=== PATIENT | female | born 1970 | race Two or more races ===

== ENCOUNTER 2024-11-05 19:54 | Emergency (ER) | payer MEDICAID, SELFPAY ==
[2024-11-05 19:56] VITALS: BMI 32.8
--- NOTE | 2024-11-05 19:59 | EKG_ITS ---
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
[2024-11-05 20:26] VITALS: BP 159/76; PULSE 76; RESP 18; TEMP 37; O2SAT 98
--- NOTE | 2024-11-05 20:40 | XR_ITS ---
Examination: PA chest single view Technique: Upright PA chest single view Exam date and time: November 05, 20242 hrs. Indications: Chest pain coughing shortness of breath today. Findings: Mild accentuation basilar bronchovascular markings No lobar pneumonia Normal heart size The osseous structures are intact Impression: Mild basilar bronchitis pattern
--- NOTE | 2024-11-05 20:41 | EDRME_ITS ---
Rapid Medical Screening Exam [facility] Arrival date/time: 11/05/24 19:54 54F with history of HTN and DM presents to ED with several days of cough, CP, and SOB. Chief Complaint: Chest Pain Vital signs: Vital Signs Temperature 98.6 F 11/05/24 20:26 Pulse Rate 76 11/05/24 20:26 Respiratory Rate 18 11/05/24 20:26 Blood Pressure 159/76 H 11/05/24 20:26 Pulse Oximetry (%) 98 11/05/24 20:26 Oxygen Delivery Method Room Air 11/05/24 20:26
[2024-11-05 21:14] LABS: Basophils # (Auto) 0.1 Thou/mm3 (0.0-0.2); Basophils % (Auto) 1 % (0-2.5); Eosinophils # (Auto) 0.5 Thou/mm3 (0.0-0.5); Eosinophils % (Auto) 5 % (0-10); Hematocrit 41.2 % (36.0-46.0); Hemoglobin 14.4 g/dL (12.0-16.0); Immature Granulocytes % (Auto) 0 % (0-0); Immature Granulocytes Auto 0.02 Thou/mm3 (0.00-0.00); Lymphocytes # (Auto) 2.6 Thou/mm3 (1.0-4.8); Lymphocytes % (Auto) 24 % (10-50); Mean Corpuscular Hemoglobin 29.6 pg (25.0-35.0); Mean Corpuscular Volume 85 fL (80-100); Monocytes # (Auto) 0.7 Thou/mm3 (0.0-0.8); Monocytes % (Auto) 7 % (0-12); Neutrophils # (Auto) 6.9 Thou/mm3 (1.8-7.7); Neutrophils % (Auto) 64 % (37-80); Nucleated Red Blood Cell % 0 /100 WBC (0); Platelet Count 305 Thou/mm3 (140-440); RDW Standard Deviation 40.2 fL (36.4-46.3); Red Blood Count 4.87 Miln/mm3 (4.00-5.20); White Blood Count 10.9 Thou/mm3 (3.6-11.0)
[2024-11-05 21:25] LABS: Alanine Aminotransferase 48 U/L (10-49); Albumin, Serum 4.3 gm/dL (3.5-5.0); Albumin/Globulin Ratio 1.3 (1.2-2.2); Alkaline Phosphatase 120 U/L (46-116); Anion Gap 11 (7-16); Aspartate Amino Transferase 35 U/L (0-34); BUN/Creatinine Ratio 16 Ratio (12-20); Bilirubin,Total 0.7 mg/dL (0.3-1.2); Blood Urea Nitrogen 11 mg/dL (9-23); Calcium 9.9 mg/dL (8.3-10.6); Calcium (Corrected) 9.9 mg/dL (8.5-10.1); Carbon Dioxide 24.2 mMol/L (20.0-31.0); Chloride 104 mMol/L (98-107); Creatinine (Component) 0.7 mg/dL (0.6-1.3); Estimated Creatinine Clearance 95.4 mL/min (>60); Globulin 3.3 gm/dL (2.3-3.5); Glucose 161 mg/dL (74-106); Osmolality,Calculated 279 (275-295); Potassium 2.9 mMol/L (3.4-5.1); Sodium 139 mMol/L (136-145); Total Protein 7.6 gm/dL (5.7-8.2); Troponin I < 0.002 ng/mL (0.0-0.045); eGFR > 60 See Note
--- NOTE | 2024-11-05 22:13 | EDNOTE_ITS ---
ED Chest Pain RME/HPI General Chief Complaint: Chest Pain Stated Complaint: CHEST PAIN,PALPITATIONS, SOB Time Seen by Provider: 11/05/24 22:12 Arrival date/time: 11/05/24 19:54 RME / HPI RME / HPI narrative: 11/05/24 19:54 54F with history of HTN and DM presents to ED with several days of cough, CP, and SOB. -------- Dr. Christian?s Main ED Evaluation: 54yo female with a history of HTN, DM presents to the ED for a chief complaint of generalized weakness x 3 days. Patient states she's had generalized weakness and palpitations for the last 3 days. She states she was seen by her PCP today and was sent over for evaluation. Patient denies any fever, chills, N/V or any other associated symptoms. No known allergies. Related Data Home Medications ?Medication ?Instructions ?Recorded ?Confirmed lisinopril 20 mg tablet 20 mg PO QDAY 03/03/2003/03 Previous Rx's ?Medication ?Instructions ?Recorded potassium chloride 10 mEq 10 meq PO QDAY Hypokalemia 7 days 11/05/24 capsule,extended release #7 caps Allergies Allergy/AdvReac Type Severity Reaction Status Date / Time No Known Allergies Allergy Verified 11/05/24 19:56 Review of Systems Review of Systems Systems Reviewed: All systems reviewed, normal except as documented Past Medical History Past Medical History NEUROLOGIC: Negative Neurological Disorders or Seizures CARDIAC: Positive Cardiac Disorders (HTN) and Hypertension; Negative Congestive Heart Failure RESPIRATORY: Negative Chronic Obstructive Pulmonary Disease (COPD) or Asthma GASTROINTESTINAL: Negative Gastrointestinal Disorders GENITOURINARY: Negative Genitourinary Disorders or Renal Disease MUSCULOSKELETAL: Positive Musculoskeletal Disorders and Arthritis ENDOCRINE: Positive Diabetes Mellitus Type 2; Negative Endocrine Disorders or Diabetes Mellitus Type 1 HEMATOLOGIC: Negative Blood Disorders or Sickle Cell Disease PSYCHO/SOCIAL: Positive Depression OTHER HISTORY: Negative Autoimmune Disease, Blood Transfusions (NO BLOOD PRODUCTS-PT JEHOVAH WITNESS), Blood Transfusion Reaction, Anesthesia Reactions, Organ Transplant or Cancer Surgical History SURGICAL: Positive Joint Replacement (RIGHT KNEE) and Tubal Ligation; Negative Organ Transplant Social History SMOKING STATUS: Never smoker SUBSTANCE USE: does not use ED Exam Narrative Physical exam: GENERAL APPEARANCE: alert and oriented x 4, well-developed, well-nourished, no acute distress VITALS: All vitals were reviewed and the pulse ox is 98% on room air, which is normal according to my interpretation. HEENT: Normocephalic, atraumatic; pupils equal, round, reactive to light; EOMI; pterygium to the left eye; mucous membranes pink, moist; oropharynx clear NECK: Supple LUNGS: CTABL; no wheezes, no rales, no rhonchi HEART: Regular rate, regular rhythm; normal S1, S2; no murmurs ABDOMEN: non distended; normal BS; soft, no tenderness, no guarding, no rebound; no masses, no organomegaly, no hernia BACK: no CVA tenderness EXTREMITIES: atraumatic; no edema NEUROLOGIC: awake; alert and oriented x4; cranial nerves II-XII grossly intact; no focal sensory or motor deficits PSYCHIATRIC: appropriate mood and affect SKIN: warm, dry, normal color; no rashes Course Course Course Narrative: CXR is ordered for determining the etiology of palpitations. Quality Measures none Orders Category Date Time Status Bedside COVID-19 Antigen Test NOW Care 11/05/24 20:40 Completed Bedside Influenza A&B Antigen Test NOW Care 11/05/24 20:41 Completed EKG (ED ONLY) *Do not use* NOW Care 11/05/24 19:59 Completed EKG (ED Only) Stat Exams 11/05/24 19:59 Draft XR chest 1V portable Stat Exams 11/05/24 20:40 Completed CBC Stat Lab 11/05/24 20:59 Completed Comprehensive Metabolic Panel Stat Lab 11/05/24 20:59 Completed Troponin I Stat Lab 11/05/24 20:59 Completed Potassium Chloride [K-Dur] Med 11/05/24 22:12 Discontinued 40 meq PO X1 ONE Vital Signs Vital signs: Vital Signs Temperature 98.6 F 11/05/24 20:26 Pulse Rate 76 11/05/24 20:26 Respiratory Rate 18 11/05/24 20:26 Blood Pressure 159/76 H 11/05/24 20:26 Pulse Oximetry (%) 98 11/05/24 20:26 Oxygen Delivery Method Room Air 11/05/24 20:26 Chest Pain MDM Narrative MDM Narrative:: Scribe Attestation: 11/05/24 - Lakisha Sanchez am scribing for and in the presence of Dr. Christian. Patient data External records reviewed:: [facility] previous records (Per chart review, patient was seen here on 12/27/23 for abdominal pain.) Clinical information provided by:: patient Social determinants that could affect healthcare access:: none Patient has the following chronic illnesses:: HTN, DM How is presenting disease/condition affected by chronic disease/condition?: uneffected by Evaluation data The following diagnostics were reviewed and interpreted by me:: lab results, radiology exam(s) and EKG tracing(s) Lab and/or radiology exams considered but not ordered:: none Interpretation Summary: CBC is normal, Potassium is low at 2.9, Glucose is 161, Troponin is normal, Bedside COVID and Influenza are negative, according to my interpretation. EKG done at 2024, NSR, rate of 73, left axis deviation, no ectopy, Q waves in V1-V3, no STEMI, according to my interpretation. [facility] Report Signed Patient: ZACKARY HOWARD. Record#: [id number] Birthdate: 1970 Age/Sex: 54 / F Location: [facility] Attending Dr: Ordering Physician: Phillip Leblanc PA-C Date of Service: 11/05/24 Procedure(s): XR chest 1V portable Accession Number(s): [id number] cc: Catrachito Joshi MD; Phillip Leblanc PA-C~ Examination: PA chest single view Technique: Upright PA chest single view Exam date and time: November 05, 2024 2042 hrs. Indications: Chest pain coughing shortness of breath today. Findings: Mild accentuation basilar bronchovascular markings No lobar pneumonia Normal heart size The osseous structures are intact Impression: Mild basilar bronchitis pattern Dictated By: Catrachito Joshi MD Signed By: <Electronically signed by Catrachito Joshi MD in OV> 11/05/242127 Medications / Prescriptions Medications or Prescriptions considered but not ordered:: none Medication administrations:: Medication Administration History Discontinued Medications Potassium Chloride (Potassium Chloride 20 Meq Tabcr) 40 meq PO X1 ONE Stop: 11/05/24 22:13 Last Admin: 11/05/24 22:46 Dose: 40 meq Documented By: CVL see above Consultations Consultation(s) initiated? (list below): No Diagnosis Chest Pain Differential Diagnosis: other (hypokalemia, hypomagnesemia, viral illness, chronic fatigue syndrome) Most likely diagnosis given after review of the tests above:: see below Admission Indicated Admission indicated?: not indicated Explain why admission is indicated or not indicated:: No criteria for admission. Admission Request Was there a request for admission?: No Disposition Plan Disposition Plan: Discharge Discharge Attestation Discharge Attestation: The patient and all family members were given an opportunity to ask questions and understood the discharge instructions. Discharge instructions specifically effects, indications for sooner follow up or return to the emergency department, and the expected course of current diagnosis. Patient condition: Stable Discharge Plan Plan Patient Disposition: HOME (Self Care) Disposition Comment: Stable for discharge home Patient condition on transfer: Stable Prescriptions/Referrals Prescriptions/Med Rec: New potassium chloride 10 mEq capsule, extended release 10 meq PO QDAY 7 Days Qty: 7 0RF No Action lisinopril 20 mg Tablet 20 mg PO QDAY Referrals: Rafael De La Garza MD [Primary Care Provider] - In 1 week Problem List Clinical Impression: Acute hypokalemia, Pterygium of left eye, Heart palpitations Patient/Caregiver Discharge Instructions Discharge Activity: activity as tolerated Education Materials: Understanding Pterygium, Discharge Instructions for ..., Treatment for a Pterygium, ED Hypokalemia, ED Palpitations, ED Pterygium Additional Instructions: Please return to the emergency department if you have any worsening or any further medical problems. Otherwise you should follow-up with your primary care doctor within the next several days. You have something called an pterygium on your left eye. Please follow-up with your primary doctor and ask to be referred to an right of way appraiser. An right of way appraiser is a doctor who is a specialist in the eyes. You should not see an emergency spill response technician. Make sure is an right of way appraiser. The closest hospital that has an right of way appraiser on-call for their emergency department is [facility] in [place]. If you have blurry vision in your left eye or any other problems you can go to their emergency department and request to be seen by or referred to an right of way appraiser. [facility] Emergency [facility] [place] [address] Print Language: Comoran Stand Alone Forms: Betty Award Info., Patient Portal Info Letter
[2024-11-05 22:36] VITALS: BP 137/86; PULSE 87; RESP 18; TEMP 36.6; O2SAT 99
[2024-11-05] MEDS: POTASSIUM CHLORIDE 20 mEq TABCR 40 MEQ PO (22:46)
[2024-11-05 23:00] VITALS: RESP 18
== END 2024-11-05 23:14 | disposition home or self-care (01) ==
PROVIDERS: Physician Assistant; Emergency Provider Emergency Medicine; PCP Family Medicine
DX: E87.6 Hypokalemia (principal); H11.002 Unspecified pterygium of left eye; R00.2 Palpitations; R94.31 Abnormal electrocardiogram [ECG] [EKG]; R05.9 Cough, unspecified; R07.9 Chest pain, unspecified; R06.02 Shortness of breath; I10 Essential (primary) hypertension
CPT/HCPCS: 36415; 71045; 80053; 84484; 85025; 87400; 87811; 93005; 99283; A9270

== ENCOUNTER 2024-12-31 18:55 | Emergency (ER) | payer MEDICAID, SELFPAY ==
[2024-12-31 18:57] VITALS: BMI 32.8
--- NOTE | 2024-12-31 19:03 | EKG_ITS ---
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
--- NOTE | 2024-12-31 19:48 | EDNOTE_ITS ---
Neuro Symptoms Deficit-RME/HPI General Chief Complaint: Neuro Symptoms/Deficit Stated Complaint: WEAKNESS, FACIAL AND BLE WEAKNESS X1 WEEK Time Seen by Provider: 12/31/24 19:37 Arrival date/time: 12/31/24 18:55 RME / HPI RME / HPI Narrative: This section includes all my notes and documentations, including HPI, PE, and ED course. Ryan Desir MD HPI: 54 y/o female with Hx of GERD, Type II DM, Primary biliary chirosis of liver here with about a week history of on and off numbness of her lips and tongue. In the past, she had similar symptoms with low potassium level. She also reports slight dizziness and headache and chest tightness on and off. No other complaints. ROS: All negative except as documented in HPI. Physical Exam: General: Alert and oriented. Appears anxious. Eyes: Conjunctivae and lids clear. EOMI. PERRL. ENT: No nasal congestion. Pharynx normal. Tympanic membrane normal bilaterally. Neck: Supple. No carotid bruit. No JVD. Heart: RRR. Lungs: No respiratory distress. Good air movement. No rhonchi, wheezing, rales. Chest: No tenderness. Abdomen: Soft and nontender. Legs: No clubbing, cyanosis, edema. Skin: Warm and dry. Neuro: Alert and oriented X 3. Cranial Nerves II-XII grossly intact. No peripheral motor deficits. I reviewed all diagnostic test results. My interpretation of the EKG is sinus rhythm with no acute ST?T changes. My interpretation of the chest x-ray is NAD. My review of the head CT report is NAD. Blood tests and urine tests unremarkable, except K 3.2. At this point, diagnoses include Hypokalemia and anxiety. Treatment here included Xanax and Potassium Chloride. Significant improvement noted. Recommended outpatient treatment. Based on my best medical judgment, made decision no further evaluation or treatment indicated at this time. Patient understands and agrees to the discharge instructions customized and printed, see below. Discharge instructions from Dr. Desir: 1. After extensive evaluation, there is no life-threatening condition.? Such as stroke or brain tumor or heart attack or pneumothorax (collapsed lung). 2. Your potassium level was very low. Increase food rich in potassium. At minimum, eat a banana daily. 3. Take Xanax as needed for anxiety.? Some of your symptoms may be due to underlying anxiety, stress, nerves. Whether this helps or not will be valuable information to your private doctors. 4. See a private doctor on 01/01/2025. To make sure there is no serious underlying heart condition, ask to help you get more tests for your heart that cannot be done here in the ER.? Such as Holter Monitor (cardiac monitoring at home from a day to even a month), heart stress test (on treadmill or with medication), echocardiogram (imaging of your heart structures), heart catherization (checking for blockages in your heart arteries), and a referral to see a Charging Manipulator. And ask for help with MRI imaging of your brain and referral to see neurologist. 5. Seek immediate medical care with worsening or with any concerns.?? Ryan Desir MD Related Data Home Medications ?Medication ?Instructions ?Recorded ?Confirmed lisinopril 20 mg tablet 20 mg PO QDAY 03/03/2003/03 Previous Rx's ?Medication ?Instructions ?Recorded alprazolam 0.25 mg tablet (Xanax) 0.25 mg PO BID PRN a nxiety #10 tabs 12/31/24 Allergies Allergy/AdvReac Type Severity Reaction Status Date / Time No Known Allergies Allergy Verified 12/31/24 18:59 Review of Systems Review of Systems Systems Reviewed: All systems reviewed, normal except as documented Narrative Review of Systems: Refer to HPI above Past Medical History Past Medical History CARDIAC: Positive Cardiac Disorders (HTN) and Hypertension MUSCULOSKELETAL: Positive Musculoskeletal Disorders and Arthritis PSYCHO/SOCIAL: Positive Depression Surgical History SURGICAL: Positive Joint Replacement (RIGHT KNEE) and Tubal Ligation Social History SMOKING STATUS: Never smoker SUBSTANCE USE: does not use ED Exam Narrative Physical exam: Refer to HPI above. Course Quality Measures none Orders Category Date Time Status EKG (ED ONLY) *Do not use* NOW Care 12/31/24 19:03 Completed Glucose [Bedside Blood Glucose] NOW Care 12/31/24 19:[address] head/brain wo con Stat Exams 12/31/24 19:49 Completed EKG (ED Only) Stat Exams 12/31/24 19:03 Draft XR chest 1V portable Stat Exams 12/31/24 19:49 Completed CBC Stat Lab 12/31/24 20:20 Completed CMP [Comprehensive Metabolic Panel] Stat Lab 12/31/24 20:20 Completed CRP [C-Reactive Protein] Stat Lab 12/31/24 20:20 Completed ESR [Sed Rate (ESR)] Stat Lab 12/31/24 20:20 Completed Free T4 (Free Thyroxine) Stat Lab 12/31/24 20:20 Completed Magnesium Stat Lab 12/31/24 20:20 Completed Procalcitonin Stat Lab 12/31/24 20:20 Completed TSH [Thyroid Stimulating Hormone] Stat Lab 12/31/24 20:20 Completed Troponin I Stat Lab 12/31/24 20:20 Completed UA, C/S IF [Urinalysis, C/S if Indicated] Stat Lab 12/31/24 20:51 Completed ALPRazoLAM [Xanax] Med 12/31/24 19:49 Discontinued 0.25 mg PO X1 ONE KCL 10% Liq UDC 15 ML Med 12/31/24 21:32 Discontinued 40 meq PO X1 ONE Vital Signs Vital signs: Vital Signs Temperature 98.1 F 12/31/24 19:57 Pulse Rate 67 12/31/24 19:57 Respiratory Rate 18 12/31/24 19:57 Blood Pressure 162/94 H 12/31/24 19:57 Pulse Oximetry (%) 99 12/31/24 19:57 Oxygen Delivery Method Room Air 12/31/24 19:57 Neuro Symptoms / Deficit MDM Narrative MDM Narrative:: Scribe Attestation: Suri Sanchez, am scribing for and in the presence of Dr. Desir. Provider Notation: Although this document has been carefully reviewed, there may still be some phonetic and other typographical errors. These errors are purely grammatical due to imperfections in the software program and should not be construed in any way to compromise the substance of the patient's medical care during this visit. Patient data External records reviewed:: [facility] previous records (Reviewed prior ED records from 11/05/24. Patient seen for Acute hypokalemia.) and PCP records Clinical information provided by:: patient Social determinants that could affect healthcare access:: none Patient has the following chronic illnesses:: Hypertension, Arthritis, Depression How is presenting disease/condition affected by chronic disease/condition?: exacerbated by Evaluation data The following diagnostics were reviewed and interpreted by me:: lab results, radiology exam(s) and EKG tracing(s) (My interpretation of the EKG is: Sinus rhythm (66 bpm) with nonspecific ST-T changes. Ryan Desir MD) Lab and/or radiology exams considered but not ordered:: None Interpretation Summary: Hypokalemia and anxiety Medications / Prescriptions Medications or Prescriptions considered but not ordered:: None Medication administrations:: Medication Administration History Discontinued Medications Alprazolam (Alprazolam 0.25 Mg Tablet) 0.25 mg PO X1 ONE Stop: 12/31/24 19:50 Last Admin: 12/31/24 20:16 Dose: 0.25 mg Documented By: ASHLEY Potassium Chloride (Potassium Chloride 10% 20 Meq/15 Ml Udc) 40 meq PO X1 ONE Stop: 12/31/24 21:33 Last Admin: 12/31/24 21:59 Dose: 40 meq Documented By: JOSE Alprazolam, Potassium Chloride Consultations Consultation(s) initiated? (list below): No Diagnosis Neuro Differential Diagnosis: subarachnoid hemorrhage, peripheral neuropathy, cerebrovascular accident, transient cerebral ischemia and other (Hyperthyroidism, electrolyte abnormalities, anxiety) Most likely diagnosis given after review of the tests above:: Hypokalemia and anxiety Admission Indicated Admission indicated?: not indicated Explain why admission is indicated or not indicated:: With significant improvement, there was no indication for admission. Admission Request Was there a request for admission?: No Disposition Plan Disposition Plan: Discharge Discharge Attestation Discharge Attestation: The patient and all family members were given an opportunity to ask questions and understood the discharge instructions. Discharge instructions specifically effects, indications for sooner follow up or return to the emergency department, and the expected course of current diagnosis. Patient condition: Stable Discharge Plan Plan Patient Disposition: HOME (Self Care) Prescriptions/Referrals Prescriptions/Med Rec: New alprazolam [Xanax] 0.25 mg tablet 0.25 mg PO BID PRN (Reason: anxiety) Qty: 10 0RF No Action lisinopril 20 mg Tablet 20 mg PO QDAY Referrals: No Primary/Family,Physician [Primary Care Provider] - In 1 week Problem List Clinical Impression: Hypokalemia Patient/Caregiver Discharge Instructions Discharge Activity: activity as tolerated Education Materials: ED Anxiety Reaction, ED Hypokalemia Additional Instructions: Discharge instructions from Dr. Desir: 1. After extensive evaluation, there is no life-threatening condition.? Such as stroke or brain tumor or heart attack or pneumothorax (collapsed lung). 2. Your potassium level was very low. Increase food rich in potassium. At minimum, eat a banana daily. 3. Take Xanax as needed for anxiety.? Some of your symptoms may be due to underlying anxiety, stress, nerves. Whether this helps or not will be valuable information to your private doctors. 4. See a private doctor on 01/01/2025. To make sure there is no serious underlying heart condition, ask to help you get more tests for your heart that cannot be done here in the ER.? Such as Holter Monitor (cardiac monitoring at home from a day to even a month), heart stress test (on treadmill or with medication), echocardiogram (imaging of your heart structures), heart catherization (checking for blockages in your heart arteries ), and a referral to see a Charging Manipulator. And ask for help with MRI imaging of your brain and referral to see neurologist. 5. Seek immediate medical care with worsening or with any concerns.?? Instrucciones de vania del Dr. Desir: 1. Tras nadira evaluaci?n exhaustiva, no se observa ninguna afecci?n potencialmente mortal, nader un derrame cerebral, un tumor cerebral, un ataque card?aco o un neumot?rax (colapso pulmonar). 2. Leblanc nivel de potasio era muy bajo. Aumente el consumo de alimentos ricos en potasio. Celina m?shawanda, coma un pl?norma al d?a. 3. [place] Xanax seg?n sea necesario para la ansiedad. Algunos de jn s?ntomas pueden deberse a ansiedad, estr?s o nerviosismo subyacentes. Si esto ayuda o no, ser? nadira informaci?n valiosa para jn m?dicos privados. 4. Consulte con un m?dico privado el 01/01/2025. Para asegurarse de que no haya nadira afecci?n card?shaneka subyacente grave, solicite ayuda para realizar m?s pruebas card?acas que no se pueden realizar aqu? en urgencias. Nader un monitor Holter (monitoreo card?aco en casa desde un d?a hasta un mes), nadira prueba de esfuerzo card?aco (en cinta o con medicaci?n), un ecocardiograma (im?genes de las estructuras card?acas), un cateterismo card?aco (para detectar obstrucciones en las arterias card?acas) y nadira derivaci?n a un cardi?logo. [place] ayuda con nadira resonancia magn?carlitos cerebral y nadira derivaci?n a un neur?logo. 5. Busque atenci?n m?dica inmediata si presenta empeoramiento o si tiene alguna inquietud. Print Language: Chilean Stand Alone Forms: Betty Award Info., Patient Portal Info Letter
--- NOTE | 2024-12-31 19:49 | XR_ITS ---
Examination: CT brain head without contrast. 2-D sagittal coronal reconstructions Date and time of exam:December 31, 2024 2033 hrs. Indications: Head pain numbness and weakness one week CTDI: vol (mGy):49.5 DLP: (mGycm):985 Technique: Multiple CT axial sections of the brain have been obtained, 5 mm slice thickness. Contrast has not been administered. 2-D sagittal, coronal reconstructions have been obtained Low dose protocols were performed. One or more of the following dose reduction techniques were used; automated exposure control, adjustment of the mA and/or KV according to patient size, use of iterative reconstruction technique. Findings: No significant ventricular enlargement. Intra-axial or extra-axial hemorrhage density is not seen. No mass effect or midline shift Basal cisterns are not remarkable. Fourth ventricle is midline. Cranial vault intact. Impression: Negative for acute hemorrhage, mass effect or midline shift Advise clinical correlation and follow-up accordingly
--- NOTE | 2024-12-31 19:49 | XR_ITS ---
Examination: PA chest single view Technique: Upright PA chest single view Exam date and time: December 31, 20242006 hrs. Indications: Shortness of breath weakness today. Findings: Accentuation basilar bronchovascular markings Normal heart size No pulmonary edema or pneumonia Impression: Basilar bronchitis pattern
[2024-12-31 19:57] VITALS: BP 162/94; PULSE 67; RESP 18; TEMP 36.7; O2SAT 99
[2024-12-31] MEDS: ALPRazoLAM 0.25 MG TABLET PO (20:16)
[2024-12-31 20:33] LABS: Basophils # (Auto) 0.1 Thou/mm3 (0.0-0.2); Basophils % (Auto) 1 % (0-2.5); Eosinophils # (Auto) 0.2 Thou/mm3 (0.0-0.5); Eosinophils % (Auto) 2 % (0-10); Hematocrit 42.7 % (36.0-46.0); Hemoglobin 14.7 g/dL (12.0-16.0); Immature Granulocytes % (Auto) 0 % (0-0); Immature Granulocytes Auto 0.02 Thou/mm3 (0.00-0.00); Lymphocytes # (Auto) 2.6 Thou/mm3 (1.0-4.8); Lymphocytes % (Auto) 29 % (10-50); Mean Corpuscular HGB Conc 34.4 g/dl (31.0-37.0); Mean Corpuscular Hemoglobin 29.7 pg (25.0-35.0); Mean Corpuscular Volume 86 fL (80-100); Monocytes # (Auto) 0.7 Thou/mm3 (0.0-0.8); Monocytes % (Auto) 8 % (0-12); Neutrophils # (Auto) 5.2 Thou/mm3 (1.8-7.7); Neutrophils % (Auto) 60 % (37-80); Nucleated Red Blood Cell % 0 /100 WBC (0); Platelet Count 288 Thou/mm3 (140-440); RDW Standard Deviation 41.2 fL (36.4-46.3); Red Blood Count 4.95 Miln/mm3 (4.00-5.20); White Blood Count 8.7 Thou/mm3 (3.6-11.0)
[2024-12-31 20:59] LABS: Sed Rate (ESR) 23 mm/hr (0-30)
[2024-12-31 21:14] LABS: Alanine Aminotransferase 52 U/L (10-49); Albumin, Serum 4.6 gm/dL (3.5-5.0); Albumin/Globulin Ratio 1.4 (1.2-2.2); Alkaline Phosphatase 109 U/L (46-116); Anion Gap 8 (7-16); Aspartate Amino Transferase 37 U/L (0-34); BUN/Creatinine Ratio 16 Ratio (12-20); Bilirubin,Total 0.7 mg/dL (0.3-1.2); Blood Urea Nitrogen 11 mg/dL (9-23); C-Reactive Protein < 0.5 mg/dL (0.0-0.9); Calcium 9.8 mg/dL (8.3-10.6); Calcium (Corrected) 9.8 mg/dL (8.5-10.1); Carbon Dioxide 25.8 mMol/L (20.0-31.0); Chloride 106 mMol/L (98-107); Creatinine (Component) 0.7 mg/dL (0.6-1.3); Estimated Creatinine Clearance 95.4 mL/min (>60); Globulin 3.3 gm/dL (2.3-3.5); Glucose 135 mg/dL (74-106); Magnesium 2.2 mg/dL (1.6-2.6); Osmolality,Calculated 280 (275-295); Potassium 3.2 mMol/L (3.4-5.1); Procalcitonin < 0.04 ng/ml (0.0-0.49); Sodium 140 mMol/L (136-145); Total Protein 7.9 gm/dL (5.7-8.2); Troponin I < 0.002 ng/mL (0.0-0.045); eGFR > 60 See Note
[2024-12-31 21:18] LABS: Collection Type, Urine Clean Catch
[2024-12-31 21:38] LABS: Bilirubin,Urine Negative (Negative); Blood,Urine Negative (Negative); Clarity,Urine Clear (Clear/Hazy); Color,Urine Colorless (Lt Yel-Yel); Culture Indicated,Urine Not Indicated; Glucose, Urine Negative (Negative); Ketones,Urine Negative (Negative); Leukocyte Esterase,Urine Negative (Negative); Nitrite,Urine Negative (Negative); PH,Urine 6.5 (5.0-7.0); Protein,Urine Negative (Neg - Trace); RBC,Urine 1 /hpf (0-3); Specific Gravity,Urine 1.005 (1.001-1.035); Squamous Epithelial Cell,Urine < 1 /hpf (0-5); Urobilinogen,Urine Negative mg/dL (0.0-1.0); WBC,Urine < 1 /hpf (0-5)
[2024-12-31] MEDS: POTASSIUM CHLORIDE 10% 20 MEQ/15 ML UDC 40 MEQ PO (21:59)
[2024-12-31 22:06] VITALS: BP 158/89; PULSE 57; RESP 17; TEMP 36.3; O2SAT 96
== END 2024-12-31 22:15 | disposition home or self-care (01) ==
PROVIDERS: Emergency Provider Emergency Medicine
DX: E87.6 Hypokalemia (principal); R53.1 Weakness; R06.02 Shortness of breath; R51.9 Headache, unspecified; R20.0 Anesthesia of skin; I10 Essential (primary) hypertension; R94.31 Abnormal electrocardiogram [ECG] [EKG]
CPT/HCPCS: 36415; 70450; 71045; 80053; 81001; 83735; 84145; 84439; 84443; 84484; 85025; 85652; 86140; 93005; 99284; A9270